=== PATIENT | male | born 1975 ===

== ENCOUNTER 2019-02-05 10:59 | Observation (INO) ==
[2019-02-05] MEDS ORDERED: LABETALOL 20 MG/4 ML SYRINGE IV STA (11:12)
[2019-02-05] MEDS ORDERED: ASPIRIN 325 MG TABLET PO STA (11:22)
[2019-02-05] MEDS ORDERED: NITROGLYCERIN SL 0.4 MG TABLET SL PRN (11:22)
[2019-02-05] MEDS ORDERED: ENOXAPARIN 100 MG/ML SYRINGE SUBCUT STA (11:22)
[2019-02-05 11:36] LABS: Basophils # 0.1 10*3/uL (0.0-0.2); Basophils % 0.8 % (0.0-0.8); Eosinophils # 0.2 10*3/uL (0.0-0.87); Hematocrit 45.5 VOL% (42.0-52.0); Hemoglobin 15.1 GM/DL (14.0-18.0); Immature Granulocytes % 0.5 %; Immature Granulocytes Absolute 0.04 #; Lymphocytes # 2.4 10*3/uL (1.4-4.0); Lymphocytes % 32.8 % (21.2-54.2); Mean Corpuscular HGB Conc 33.2 GM/DL (32-36); Mean Corpuscular Volume 89.2 FL (87-102); Mean Platelet Volume 9.5 FL (9.6-12.0); Neutrophils % 55.9 % (38.7-73.9); Platelet Count 242 T/CUMM (130-400); Red Cell Distribution Width 11.9 % (9.3-17.3); White Blood Count 7.4 T/CUMM (4-12)
[2019-02-05 12:02] LABS: Albumin 3.8 G/DL (3.4-5.0); Bilirubin,Total 0.6 MG/DL (0.2-1.0); Calcium 8.9 MG/DL (8.5-10.1); Osmolality,Calculated 283.1 MOS/KG (273-304); Total Protein 7.1 G/DL (6.4-8.3)
[2019-02-05] MEDS ORDERED: ONDANSETRON 4 MG/2 ML VIAL IV PRN (13:04)
[2019-02-05] MEDS ORDERED: ACETAMINOPHEN 325 MG TABLET PO PRN (13:04)
[2019-02-05 14:57] LABS: Osmolality,Calculated 281.8 MOS/KG (273-304)
[2019-02-05] MEDS ORDERED: GLUCAGON 1 MG VIAL IM PRN (15:14)
[2019-02-05] MEDS ORDERED: ALUM/MAG/SIMETH/LIDO VISC 1:1 30 ML BOTTLE PO PRN (15:14)
[2019-02-05] MEDS ORDERED: DEXTROSE 10% 250 ML BAG IV PRN (15:14)
[2019-02-05] MEDS ORDERED: oxyCODONE/ACETAMINOPHEN 5-325 MG TABLET PO PRN (15:16)
[2019-02-05] MEDS: INSULIN LISPRO 100 UNIT/ML SUBCUT SCH ×2 (16:32→20:43)
[2019-02-05 17:39] LABS: Troponin I < 0.015 NG/ML (0.00-0.045)
[2019-02-05] MEDS: carvediloL 6.25 MG TABLET PO SCH (20:42)
[2019-02-05 22:52] LABS: Apearance,Urine CLEAR (Clear); Bilirubin,Urine Negative (Negative); Blood, Urine Negative (Negative); Glucose,Urine (UA) >=500 mg/dL (Negative); Ketones,Urine 5 mg/dL (Negative); Mucus,Urine Occasional /LPF (Occasional); Nitrite,Urine Negative (Negative); Protein,Urine Negative; RBC,Urine 1 /HPF (0-4); Squamous Epithelial Cell,Urine Occasional /HPF (0-10); Urine Color Yellow (Yellow); Urine Specific Gravity 1.027 (1.001-1.035); Urine Urobilinogen < 2.0 EU/DL (0.2-1.0); WBC,Urine 1 /HPF (0-6)
[2019-02-05 23:02] LABS: Barbiturates Screen,Urine Negative (Negative); Benzodiazepines Screen,Urine Negative (Negative); Cannabinoid Screen,Urine Positive (Negative); Opiate Screen,Urine Positive (Negative); Phencyclidine Screen,Urine Negative (Negative)
[2019-02-06 06:06] LABS: Basophils % 0.6 % (0.0-0.8); Eosinophils # 0.2 10*3/uL (0.0-0.87); Eosinophils % 2.7 % (0.00-10.9); Hematocrit 43.5 VOL% (42.0-52.0); Hemoglobin 14.3 GM/DL (14.0-18.0); Immature Granulocytes % 0.4 %; Immature Granulocytes Absolute 0.03 #; Lymphocytes # 3.1 10*3/uL (1.4-4.0); Lymphocytes % 44.7 % (21.2-54.2); Mean Corpuscular HGB Conc 32.9 GM/DL (32-36); Mean Corpuscular Volume 90.2 FL (87-102); Mean Platelet Volume 10.1 FL (9.6-12.0); Monocytes % 7.9 % (1.7-12.7); Neutrophils % 43.7 % (38.7-73.9); Platelet Count 235 T/CUMM (130-400); Red Blood Count 4.82 MC/CUMM (3.8-5.5); Red Cell Distribution Width 11.9 % (9.3-17.3)
[2019-02-06 06:16] LABS: Troponin I < 0.015 NG/ML (0.00-0.045)
[2019-02-06 06:21] LABS: Calcium 8.9 MG/DL (8.5-10.1); Osmolality,Calculated 286.7 MOS/KG (273-304); Risk Ratio 4.38
[2019-02-06 07:59] VITALS: BP 154/85
[2019-02-06] MEDS: INSULIN LISPRO 100 UNIT/ML SUBCUT SCH (08:56)
[2019-02-06] MEDS: carvediloL 6.25 MG TABLET PO SCH (08:57)
[2019-02-06] MEDS ORDERED: ASPIRIN EC 81 MG TABLET PO SCH (09:00)
[2019-02-06] MEDS ORDERED: PANTOPRAZOLE 40 MG TABLET PO SCH (09:00)
[2019-02-06] MEDS ORDERED: OMEGA 3 ACID ETHYL ESTERS 1 GM CAPSULE PO SCH (11:30)
[2019-02-06] MEDS ORDERED: ENOXAPARIN 40 MG/0.4 ML SYRINGE SUBCUT SCH (12:00)
== END 2019-02-06 12:25 | disposition home or self-care (01) ==
LOC: N.EDINP 10:59 → N.ED 10:59 → N.2W 13:17
PROVIDERS: ADMIT Internal Medicine; ATTEND Internal Medicine

== ENCOUNTER 2021-06-29 00:22 | Observation (INO) ==
[2021-06-29] MEDS ORDERED: CLINDAMYCIN INJ 600 MG/50 ML PREMIX IV ONE (00:46)
[2021-06-29 01:33] LABS: Basophils # 0.1 10*3/uL (0.0-0.2); Basophils % 0.6 % (0.0-0.8); Eosinophils # 0.1 10*3/uL (0.0-0.87); Eosinophils % 0.8 % (0.00-10.9); Hematocrit 42.1 VOL% (42.0-52.0); Hemoglobin 14.2 GM/DL (14.0-18.0); Immature Granulocytes % 0.3 %; Immature Granulocytes Absolute 0.03 #; Lymphocytes # 1.7 10*3/uL (1.4-4.0); Lymphocytes % 17.4 % (21.2-54.2); Mean Corpuscular HGB Conc 33.7 GM/DL (32-36); Mean Corpuscular Volume 87.5 FL (87-102); Mean Platelet Volume 9.9 FL (9.6-12.0); Monocytes % 8.4 % (1.7-12.7); Neutrophils % 72.5 % (38.7-73.9); Platelet Count 274 T/CUMM (130-400); Red Blood Count 4.81 MC/CUMM (3.8-5.5); Red Cell Distribution Width 11.8 % (9.3-17.3)
[2021-06-29 01:55] LABS: Albumin 3.4 G/DL (3.4-5.0); Bilirubin,Total 0.9 MG/DL (0.20-1.00); Calcium 9.1 MG/DL (8.5-10.1); Osmolality,Calculated 270.9 MOS/KG (273-304); Potassium 3.9 MMOL/L (3.5-5.1); Total Protein 7.6 G/DL (6.4-8.2)
[2021-06-29] MEDS: KETOROLAC 30 MG/1 ML VIAL IV STA ×2 (02:43→02:46)
[2021-06-29] MEDS ORDERED: SODIUM CHLORIDE 0.9% 1,000 ML IV SCH (03:00)
[2021-06-29] MEDS ORDERED: GLUCAGON 1 MG VIAL IM PRN ×2 (03:01→15:43)
[2021-06-29] MEDS ORDERED: DEXTROSE 10% 250 ML BAG IV PRN ×2 (03:01→15:51)
[2021-06-29] MEDS ORDERED: INSULIN GLARGINE 100 UNIT/ML SUBCUT ONE (03:02)
[2021-06-29] MEDS: MORPHINE 4 MG/1 ML VIAL IV PRN ×2 (04:00→07:52)
[2021-06-29] MEDS: INSULIN LISPRO 100 UNIT/ML SUBCUT SCH ×3 (06:34→17:57)
[2021-06-29] MEDS ORDERED: HYDROmorphone 1 MG/1 ML SYRINGE IV PRN (08:50)
[2021-06-29] MEDS: CLINDAMYCIN INJ 600 MG/50 ML PREMIX IV SCH ×2 (10:23→16:38)
[2021-06-29] MEDS ORDERED: fentaNYL 100 MCG/2 ML VIAL ONE (11:40)
[2021-06-29] MEDS ORDERED: SUCCINYLCHOLINE 200 MG/10 ML VIAL ONE ×2 (11:40→13:10)
[2021-06-29] MEDS ORDERED: LIDOCAINE 2% 5 ML VIAL ONE (11:40)
[2021-06-29] MEDS ORDERED: propofoL 200 MG/20 ML VIAL IV ONE (11:40)
[2021-06-29] MEDS ORDERED: MIDAZOLAM 2 MG/2 ML VIAL ONE (11:40)
[2021-06-29] MEDS: OLMESARTAN 20 MG TABLET PO SCH (11:47)
[2021-06-29] MEDS: carvediloL 6.25 MG TABLET PO SCH ×2 (11:47→16:37)
[2021-06-29] MEDS: ASPIRIN EC 81 MG TABLET PO SCH (11:47)
[2021-06-29] MEDS ORDERED: LACTATED RINGERS 1,000 ML IV SCH (12:30)
[2021-06-29] MEDS ORDERED: LIDOCAINE 1%/EPI INJ 20 ML VIAL ONE (12:37)
[2021-06-29] MEDS ORDERED: BUPIVACAINE MPF 0.25% 30 ML VIAL ONE (12:37)
[2021-06-29] MEDS ORDERED: SEVOFLURANE 1 UNIT/15 MINUTE INH ONE ×3 (13:04)
[2021-06-29] MEDS ORDERED: ONDANSETRON 4 MG/2 ML VIAL IV PRN (15:43)
[2021-06-29] MEDS ORDERED: BISACODYL 5 MG TABLET PO PRN (15:43)
[2021-06-29] MEDS ORDERED: ALBUTEROL/IPRATROPIUM 3 ML NEB RESP TX PRN (15:43)
[2021-06-29] MEDS: prednisoLONE ACETATE 1% OPH SUSP 5 ML BOTTLE RIGHT EYE SCH ×2 (16:38→22:10)
[2021-06-30] MEDS: CLINDAMYCIN INJ 600 MG/50 ML PREMIX IV SCH ×3 (00:59→17:14)
[2021-06-30] MEDS: HYDROmorphone 1 MG/1 ML SYRINGE IV PRN ×2 (00:59→13:39)
[2021-06-30] MEDS: INSULIN LISPRO 100 UNIT/ML SUBCUT SCH ×4 (00:59→17:14)
[2021-06-30 06:01] LABS: Basophils % 0.6 % (0.0-0.8); Eosinophils # 0.2 10*3/uL (0.0-0.87); Eosinophils % 2.3 % (0.00-10.9); Hematocrit 36.3 VOL% (42.0-52.0); Hemoglobin 11.7 GM/DL (14.0-18.0); Immature Granulocytes % 0.4 %; Immature Granulocytes Absolute 0.03 #; Lymphocytes # 2.4 10*3/uL (1.4-4.0); Lymphocytes % 34.3 % (21.2-54.2); Mean Corpuscular HGB Conc 32.2 GM/DL (32-36); Mean Corpuscular Volume 90.1 FL (87-102); Monocytes % 11.9 % (1.7-12.7); Neutrophils % 50.5 % (38.7-73.9); Platelet Count 258 T/CUMM (130-400); Red Blood Count 4.03 MC/CUMM (3.8-5.5); Red Cell Distribution Width 11.8 % (9.3-17.3)
[2021-06-30 06:05] LABS: Calcium 8.3 MG/DL (8.5-10.1); Potassium 4.3 MMOL/L (3.5-5.1)
[2021-06-30] MEDS ORDERED: INSULIN GLARGINE 100 UNIT/ML SUBCUT SCH (09:00)
[2021-06-30] MEDS: ASPIRIN EC 81 MG TABLET PO SCH (09:07)
[2021-06-30] MEDS: PANTOPRAZOLE 40 MG TABLET PO SCH (09:07)
[2021-06-30] MEDS: prednisoLONE ACETATE 1% OPH SUSP 5 ML BOTTLE RIGHT EYE SCH ×3 (09:08→22:18)
[2021-06-30] MEDS: carvediloL 6.25 MG TABLET PO SCH ×2 (09:08→17:14)
[2021-06-30] MEDS: OLMESARTAN 20 MG TABLET PO SCH (09:08)
[2021-06-30] MEDS ORDERED: CYCLOBENZAPRINE 7.5 MG PO PRN (12:45)
[2021-06-30] MEDS: SODIUM HYPOCHLORITE 0.25% IRRIG 473 ML BOTTLE TOP SCH (13:40)
[2021-06-30] MEDS: INSULIN ASPART PROTAMINE/ASPART 70/30 100 UNIT/ML SUBCUT SCH (22:18)
[2021-07-01] MEDS: INSULIN LISPRO 100 UNIT/ML SUBCUT SCH ×4 (00:49→12:55)
[2021-07-01] MEDS: CLINDAMYCIN INJ 600 MG/50 ML PREMIX IV SCH ×2 (00:49→09:23)
[2021-07-01 04:39] LABS: Basophils # 0.1 10*3/uL (0.0-0.2); Basophils % 0.7 % (0.0-0.8); Eosinophils # 0.2 10*3/uL (0.0-0.87); Eosinophils % 2.9 % (0.00-10.9); Hematocrit 35.7 VOL% (42.0-52.0); Hemoglobin 11.7 GM/DL (14.0-18.0); Immature Granulocytes % 0.4 %; Immature Granulocytes Absolute 0.03 #; Lymphocytes # 2.8 10*3/uL (1.4-4.0); Mean Corpuscular HGB Conc 32.8 GM/DL (32-36); Mean Corpuscular Volume 89.7 FL (87-102); Mean Platelet Volume 9.6 FL (9.6-12.0); Monocytes % 9.9 % (1.7-12.7); Neutrophils % 50.1 % (38.7-73.9); Platelet Count 270 T/CUMM (130-400); Red Blood Count 3.98 MC/CUMM (3.8-5.5); Red Cell Distribution Width 11.6 % (9.3-17.3); White Blood Count 7.7 T/CUMM (4-12)
[2021-07-01 05:04] LABS: Calcium 8.1 MG/DL (8.5-10.1); Osmolality,Calculated 285.5 MOS/KG (273-304); Potassium 3.8 MMOL/L (3.5-5.1)
[2021-07-01] MEDS ORDERED: NICOTINE 21 MG/24 HR PATCH TRANSDERM SCH (09:00)
[2021-07-01] MEDS: OLMESARTAN 20 MG TABLET PO SCH (09:23)
[2021-07-01] MEDS: ASPIRIN EC 81 MG TABLET PO SCH (09:23)
[2021-07-01] MEDS: PANTOPRAZOLE 40 MG TABLET PO SCH (09:23)
[2021-07-01] MEDS: carvediloL 6.25 MG TABLET PO SCH (09:23)
[2021-07-01] MEDS: SODIUM HYPOCHLORITE 0.25% IRRIG 473 ML BOTTLE TOP SCH (09:25)
[2021-07-01] MEDS: INSULIN ASPART PROTAMINE/ASPART 70/30 100 UNIT/ML SUBCUT SCH (09:25)
[2021-07-01] MEDS: prednisoLONE ACETATE 1% OPH SUSP 5 ML BOTTLE RIGHT EYE SCH ×2 (09:27→15:59)
[2021-07-01] MEDS: HYDROmorphone 1 MG/1 ML SYRINGE IV PRN (16:25)
[2021-07-01] MEDS ORDERED: INSULIN ASPART PROTAMINE/ASPART 70/30 100 UNIT/ML SUBCUT SCH (16:30)
[2021-07-01 16:52] VITALS: BP 132/85
== END 2021-07-01 17:10 | disposition home or self-care (01) ==
LOC: N.EDINP 00:22 → N.ED 00:22 → SUATTDRO 02:56 → N.3E 11:48
PROVIDERS: ADMIT Internal Medicine; ATTEND Internal Medicine